=== PATIENT | male | born 1935 | race Caucasian/White ===

== ENCOUNTER 2020-10-16 14:54 | Inpatient (IN) | payer MEDICARE ==
[~2020-10-16] VITALS: Ht 177.8 cm; Wt 49.0 kg
[2020-10-16 15:52] LABS: BASOPHILS % (AUTO) 0.2 % (0.0-5.0); EOSINOPHILS % (AUTO) 0.2 % (0.0-8.0); HEMATOCRIT 38.5 % (42-54); LYMPHOCYTES % (AUTO) 21.9 % (21.0-51.0); MEAN CORPUSCULAR HEMOGLOBIN 31.4 pg (27.0-33.0); MEAN CORPUSCULAR VOLUME 92.3 fL (79-99); MONOCYTES % (AUTO) 8.9 % (3.0-13.0); NEUTROPHILS % (AUTO) 68.2 % (40.0-77.0); PLATELET COUNT (AUTO) 150 K/uL (130-400); RED BLOOD CELL COUNT(AUTO) 4.17 MIL/uL (4.50-6.20); RED CELL DISTRIBUTION WIDTH 12.2 % (11.0-15.5); WHITE BLOOD COUNT (AUTO) 4.9 K/uL (4.8-10.8)
[2020-10-16] MEDS ORDERED: ONDANSETRON HCL 4 MG/2 ML VIAL ONE (15:56)
[2020-10-16] MEDS ORDERED: SODIUM CHLORIDE 0.9% 1000ML 1,000 ML IV ONE (15:57)
[2020-10-16 16:00] LABS: CREATININE 0.8 mg/dL (0.5-1.5); POTASSIUM 4.2 mmol/L (3.5-5.1)
[2020-10-16 16:05] LABS: ALBUMIN 3.3 g/dL (3.5-5.0); BILIRUBIN,TOTAL 0.6 mg/dL (0.2-1.0); TOTAL PROTEIN, SERUM 7.3 g/dL (6.0-8.3)
[2020-10-16 16:08] LABS: APPEARANCE,URINE SL CLOUDY (CLEAR); BILIRUBIN,URINE NEGATIVE (NEGATIVE); COLOR,URINE YELLOW (YELLOW); GLUCOSE, URINE (UA) NEGATIVE (NEGATIVE); KETONES,URINE NEGATIVE (NEGATIVE); LEUKOCYTE ESTERASE ,URINE TRACE (NEGATIVE); NITRATE,URINE POSITIVE (NEGATIVE); OCCULT BLOOD,URINE NEGATIVE (NEGATIVE); PROTEIN,URINE TRACE mg/dL (NEGATIVE)
[2020-10-16 16:17] LABS: RBC,URINE 0-1 /HPF (0-1)
[2020-10-16 16:18] LABS: BACTERIA,URINE Few /HPF (None Seen); SQUAMOUS EPITHELIAL CELL,UR Rare /HPF (0-2); TRANSITIONAL EPI CELLS,URINE Rare /HPF (None Seen)
[2020-10-16 16:19] LABS: AMORPHOUS SEDIMENT,UR Few /LPF (None Seen)
[2020-10-16] MEDS ORDERED: IOHEXOL-350 75 ML VIAL IV ONE (17:07)
[2020-10-16] MEDS ORDERED: ZOSYN 3.375GM+NS 50ML 50 ML IV ONE (18:40)
[2020-10-16] MEDS ORDERED: MORPHINE SULFATE 4 MG/1ML SYG ONE (18:49)
[2020-10-16] MEDS ORDERED: ACETAMINOPHEN 325 MG TAB PO PRN ×2 (19:30)
[2020-10-16] MEDS ORDERED: ONDANSETRON HCL 4 MG/2 ML VIAL IV PRN (19:30)
[2020-10-16] MEDS ORDERED: LACTULOSE 20 GM/30 ML UDCUP PO PRN (19:30)
[2020-10-16] MEDS: SODIUM CHLORIDE 0.9% 1000ML 1,000 ML IV SCH (19:30)
[2020-10-16] MEDS ORDERED: MORPHINE SULFATE 2 MG/ML 1ML SYG IV PRN (19:30)
[2020-10-16] MEDS: CEFTRIAXONE SODIUM 1 GM IV SCH (20:00)
[2020-10-16] MEDS: FAMOTIDINE/PF 20 MG/2 ML VIAL IV SCH (21:00)
[2020-10-16] MEDS ORDERED: BISACODYL 10 MG SUPP.RECT RC ONE ×2 (21:25→21:36)
[2020-10-16] MEDS ORDERED: CEFTRIAXONE SODIUM 1 GM ONE (21:36)
[2020-10-16] MEDS ORDERED: FAMOTIDINE/PF 20 MG/2 ML VIAL IV ONE (21:36)
[2020-10-16] MEDS ORDERED: SODIUM CHLORIDE 0.9% 50 ML IV ONE (21:37)
[2020-10-17] MEDS: SODIUM CHLORIDE 0.9% 1000ML 1,000 ML IV SCH ×2 (05:30→15:30)
[2020-10-17 05:52] LABS: CREATININE 0.8 mg/dL (0.5-1.5); POTASSIUM 3.8 mmol/L (3.5-5.1)
[2020-10-17 05:55] LABS: BASOPHILS % (AUTO) 0.2 % (0.0-5.0); HEMATOCRIT 36.1 % (42-54); LYMPHOCYTES % (AUTO) 22.9 % (21.0-51.0); MEAN CORPUSCULAR HEMOGLOBIN 31.1 pg (27.0-33.0); MEAN CORPUSCULAR HGB CONC 33.5 g/dL (32.0-36.0); MEAN CORPUSCULAR VOLUME 92.8 fL (79-99); MONOCYTES % (AUTO) 8.6 % (3.0-13.0); NEUTROPHILS % (AUTO) 67.9 % (40.0-77.0); PLATELET COUNT (AUTO) 146 K/uL (130-400); RED BLOOD CELL COUNT(AUTO) 3.89 MIL/uL (4.50-6.20); RED CELL DISTRIBUTION WIDTH 12.1 % (11.0-15.5); WHITE BLOOD COUNT (AUTO) 5.3 K/uL (4.8-10.8)
[2020-10-17] MEDS ORDERED: ENOXAPARIN SODIUM 40 MG/0.4 ML SYRINGE SQ ONE (08:12)
[2020-10-17] MEDS ORDERED: FAMOTIDINE/PF 20 MG/2 ML VIAL IV ONE (08:13)
[2020-10-17] MEDS: FAMOTIDINE/PF 20 MG/2 ML VIAL IV SCH ×2 (09:00→20:00)
[2020-10-17] MEDS: ENOXAPARIN SODIUM 40 MG/0.4 ML SYRINGE SQ SCH (09:00)
[2020-10-17] MEDS ORDERED: LACTULOSE 20 GM/30 ML UDCUP ONE (14:14)
[2020-10-17] MEDS ORDERED: BISACODYL 10 MG SUPP.RECT RC ONE (14:15)
[2020-10-17] MEDS ORDERED: LUBIPROSTONE 24 MCG CAP PO SCH (14:45)
[2020-10-17] MEDS: LUBIPROSTONE 24 MCG CAP PO SCH (17:00)
[2020-10-17 19:33] VITALS: BP 129/72
[2020-10-17] MEDS: CEFTRIAXONE SODIUM 1 GM IV SCH (20:00)
[2020-10-17 23:15] VITALS: BP 125/68
[2020-10-18] VITALS (8 sets, daily range): BP systolic 106–167; BP diastolic 57–86
[2020-10-18] MEDS: SODIUM CHLORIDE 0.9% 1000ML 1,000 ML IV SCH ×3 (01:52→21:30)
[2020-10-18] MEDS: LUBIPROSTONE 24 MCG CAP PO SCH ×2 (08:00→16:02)
[2020-10-18] MEDS: ENOXAPARIN SODIUM 40 MG/0.4 ML SYRINGE SQ SCH (09:00)
[2020-10-18] MEDS: FAMOTIDINE/PF 20 MG/2 ML VIAL IV SCH ×2 (09:11→20:28)
[2020-10-18] MEDS: CEFTRIAXONE SODIUM 1 GM IV SCH (20:28)
[2020-10-19] VITALS (7 sets, daily range): BP systolic 110–167; BP diastolic 57–79
[2020-10-19] MEDS ORDERED: PHARMACY COMMUNICATION MISC SCH (03:45)
[2020-10-19 04:26] LABS: BASOPHILS % (AUTO) 0.2 % (0.0-5.0); EOSINOPHILS % (AUTO) 1.6 % (0.0-8.0); HEMATOCRIT 35.5 % (42-54); LYMPHOCYTES % (AUTO) 28.1 % (21.0-51.0); MEAN CORPUSCULAR HEMOGLOBIN 31.1 pg (27.0-33.0); MEAN CORPUSCULAR HGB CONC 34.1 g/dL (32.0-36.0); MEAN CORPUSCULAR VOLUME 91.3 fL (79-99); MONOCYTES % (AUTO) 11.8 % (3.0-13.0); NEUTROPHILS % (AUTO) 57.9 % (40.0-77.0); PLATELET COUNT (AUTO) 169 K/uL (130-400); RED BLOOD CELL COUNT(AUTO) 3.89 MIL/uL (4.50-6.20); RED CELL DISTRIBUTION WIDTH 11.9 % (11.0-15.5); WHITE BLOOD COUNT (AUTO) 4.5 K/uL (4.8-10.8)
[2020-10-19 04:44] LABS: CARBON DIOXIDE 30 mmol/L (21-32); CHLORIDE 108 mmol/L (101-111); CREATININE 0.8 mg/dL (0.5-1.5); GLOMERULAR FILTR. RATE CALC 98 mL/min (>60); GLUCOSE,RANDOM 99 mg/dL (70-105); LACTATE DEHYDROGENASE 249 U/L (81-234); POTASSIUM 3.7 mmol/L (3.5-5.1); SODIUM SERUM 144 mmol/L (136-145); UREA NITROGEN, BLOOD 22 mg/dL (7-18)
[2020-10-19] MEDS: LUBIPROSTONE 24 MCG CAP PO SCH (09:09)
[2020-10-19] MEDS: ENOXAPARIN SODIUM 40 MG/0.4 ML SYRINGE SQ SCH (09:09)
[2020-10-19] MEDS: FAMOTIDINE/PF 20 MG/2 ML VIAL IV SCH (09:09)
[2020-10-19] MEDS: SODIUM CHLORIDE 0.9% 1000ML 1,000 ML IV SCH (09:10)
[2020-10-19] MEDS ORDERED: LACT10SO9 PO (12:28)
== END 2020-10-19 16:00 | disposition home or self-care (01) | DRG 391 ==
LOC: EDH 14:54 → EDHIP 19:21 → 3AH 10-17 16:26 → 2BH 10-18 18:34 → 2CV 10-19 11:26
PROVIDERS: ADMIT Internal Medicine; ATTEND Internal Medicine
DX: K59.00 Constipation, unspecified (principal); U07.1 COVID-19; N39.0 Urinary tract infection, site not specified; K80.20 Calculus of gallbladder without cholecystitis without obstruction; K82.8 Other specified diseases of gallbladder; E78.5 Hyperlipidemia, unspecified; K59.09 Other constipation; R91.8 Other nonspecific abnormal finding of lung field; Z91.09 Other allergy status, other than to drugs and biological substances
CPT/HCPCS: 36415; 71045; 74177; 78227; 80048; 80053; 81001; 82150; 82728; 82948; 83615; 83690; 84145; 85025; 86140; 86900; 86901; 87077; 87088; 87186; 87426; 93005; A9537; G0378; J0696; J1650; J2270; J2405; J2543; J3490; J7030; Q9967

== ENCOUNTER 2025-11-10 10:06 | Emergency (ER) | payer MEDICARE ==
[~2025-11-10] VITALS: Ht 177.8 cm; Wt 118.8 kg
[~2025-11-10 10:06] MED LIST: LACT10SO9 PO
--- NOTE | 2025-11-10 10:12 | ERN ---
ED Note History of Present Illness Stated Complaint: COUGH Chief Complaint: Cough Time Seen by MD: 10:07 Dictation: PATIENT IS A 89-YEAR-OLD MALE WITH A HISTORY OF PULMONARY HYPERTENSION COMING IN TODAY WITH A CONGESTED COUGH AND SHORTNESS A BREATH ON EXERTION FOR THE LAST 7-8 DAYS. HE HAS NO FEVER NO CHILLS STATES THIS THE COUGH IS NONPRODUCTIVE. STATES HE SAW HIS PRIMARY CARE DOCTOR WHO GAVE HIM BENZONATATE, HE SAID IT DID NOT HELP. HAS BEEN TAKING MUCINEX WAS IT HAS NOT HELPED WITH THE COUGH AND CONGESTION. HE DOES NOT HAVE A LOCAL ADULT [employer] FOR HIS PULMONARY HYPERTENSION, HE IS A winter. Allergies: Coded Allergies: pollen extracts (Verified Allergy, Unknown, 10/16/20) Home Meds Active Scripts Lactulose (Lactulose) 20 Gm/30 Ml Solution, 20 GM PO BID PRN for CONSTIPATION for 30 Days, #1800 ML Prov:BEE CALLE Jr., MD 10/19/20 Past Medical History RN Note Reviewed/Agreed w/PFSH: Yes Review of System Dictation CONSTITUTIONAL: NEGATIVE EXCEPT FOR HPI HEAD/FACE: NEGATIVE EXCEPT FOR HPI EENT: NEGATIVE EXCEPT FOR HPI RESPIRATORY: NEGATIVE EXCEPT FOR HPI SOB/COUGH CONGESTION GASTROINTESTINAL/ABDOMINAL: NEGATIVE EXCEPT FOR HPI GENITOURINARY: NEGATIVE EXCEPT FOR HPI MUSCULOSKELETAL: NEGATIVE EXCEPT FOR HPI INTEGUMENTARY: NEGATIVE EXCEPT FOR HPI NEUROLOGICAL/PSYCH: NEGATIVE EXCEPT FOR HPI HEMATOLOGIC/LYMPHATIC: NEGATIVE EXCEPT FOR HPI ALL SYSTEMS NEGATIVE, EXCEPT NOTED ABOVE. 13 POINT REVIEW OF SYSTEMS ASSESSED AND ALL NEGATIVE EXCEPT FOR ABOVE. Initial Vital Sign VS Vital Signs Date Time Temp Pulse Resp B/P (MAP) Pulse Ox O2 Delivery O2 Flow Rate FiO2 11/10/25 10:07 98.8 78 18 140/64 96 Room Air 0 Physical Exam Dictation VITAL SIGNS REVIEWED GENERAL APPEARANCE: ALERT, ORIENTED X 3, MILD CUTE DISTRESS, WELL DEVELOPED, NOURISHED. OBESE HEAD AND FACE: NON-TRAUMATIC. EYES: PERRL, PINK CONJUNCTIVAS, EYELID NO TRAUMA, ANTERIOR CHAMBER WITH ARCUS SENILIS. EARS: PINNAS INTACT AND NO SIGNS OF TRAUMA OR ERYTHEMA EAR CANALS CLEAR AND NO DISCHARGE TM NO ERYTHEMA NOSE: NO DISCHARGE, NO BLEEDING. OROPHARYNX: MOUTH NORMAL, TONGUE PINK, PHARYNX CLEAR,NO ERYTHEMA, TONSILS NO EXUDATES, NO ABSCESSES NOTED, MUCOUS MEMBRANE MOIST NECK: SUPPLE, NON-TENDER, NO THYROMEGALY, NO MASSES, NO JVD, NO BRUITS BREAST:DEFERRED CHEST:NO TENDERNESS, NO CREPITUS, NO PARADOXICAL MOVEMENT, NO RETRACTIONS LUNGS:C BILATERAL BREATH SOUNDS CLEAR VERY DIMINISHED THROUGHOUT. NOTED TO BE SPEAKING IN 3-4 WORD SENTENCES. DRY COUGH NOTED HEART: REGULAR RATE, REGULAR RHYTHM, NO MURMUR, NO GALLOPS VASCULAR: NO PERIPHERAL EDEMA, ABDOMEN: SOFT, POSITIVE BOWEL SOUNDS, NONDISTENDED, NO GUARDING, NONTENDER, NO REBOUND, NO MASSES NO HEPATOMEGALY, NO SPLENOMEGALY, NO TRENT'S SIGN, NO HERNIAS. RECTAL: DEFERRED GENITAL: DEFERRED NEUROLOGICAL: NORMAL SPEECH, MOTOR FUNCTION INTACT, SENSORY FUNCTION INTACT MUSCULOSKELETAL: NECK NONTENDER, FULL RANGE OF MOTION, BACK NONTENDER, FULL RANGE OF MOTION, EXTREMITIES: NONTENDER, FULL RANGE OF MOTION SKIN: COLOR PINK, DRY, NO TURGOR, NO RASH, NO LACERATIONS, NO ABRASIONS, NO CONTUSIONS. LYMPHATIC: DEFERRED Results (Laboratory/Radiology) Laboratory/Radiology Laboratory Tests Test 11/10/25 10:15 11/10/25 10:19 11/10/25 10:25 11/10/25 10:35 SARS-CoV-2 Antigen (Rapid) PRESUMPTIVE NEGATIVE White Blood Count 8.2 K/uL (4.8-10.8) Red Blood Count 3.70 MIL/uL (4.50-6.20) L Hemoglobin 11.7 g/dL (14.0-18.0) L Hematocrit 35.8 % (42-54) L Mean Corpuscular Volume 96.8 fL (79-99) Mean Corpuscular Hemoglobin 31.6 pg (27.0-33.0) Mean Corpuscular Hemoglobin Concent 32.7 g/dL (32.0-36.0) Red Cell Distribution Width 13.1 % (11.0-15.5) Platelet Count 157 K/uL (130-400) Mean Platelet Volume 11.7 fL (7.5-10.5) H Immature Granulocyte % (Auto) 0.2 % (0-1) Neutrophils (%) (Auto) 63.9 % (40.0-77.0) Lymphocytes (%) (Auto) 17.9 % (21.0-51.0) L Monocytes (%) (Auto) 13.5 % (3.0-13.0) H Eosinophils (%) (Auto) 3.9 % (0.0-8.0) Basophils (%) (Auto) 0.6 % (0.0-5.0) Neutrophils # (Auto) 5.2 K/uL (1.8-7.7) Lymphocytes # (Auto) 1.5 K/uL (1.0-4.8) Monocytes # (Auto) 1.1 K/uL (0.1-1.0) H Eosinophils # (Auto) 0.32 K/uL (0.00-0.70) Basophils # (Auto) 0.05 K/uL (0.00-0.20) Absolute Immature Granulocyte (auto 0.02 K/uL (0-1) Nucleated Red Blood Cells 0.0 % (0.0-0.19) Sodium Level 142 mmol/L (136-145) Potassium Level 4.8 mmol/L (3.5-5.1) Chloride Level 104 mmol/L (101-111) Carbon Dioxide Level 33 mmol/L (21-32) H Blood Urea Nitrogen 17 mg/dL (7-18) Creatinine 0.9 mg/dL (0.5-1.3) Glomerular Filtration Rate Calc 83 mL/min (>90) Random Glucose 108 mg/dL (70-105) H Total Calcium 9.5 mg/dL (8.5-10.1) Magnesium Level 2.10 mg/dL (1.80-2.40) Troponin I High Sensitivity 12 ng/L (4-75) B-Type Natriuretic Peptide 574 pg/mL (0-100) H Urine Color YELLOW (YELLOW) Urine Appearance CLEAR (CLEAR) Urine pH 6.5 (5.0-8.0) Urine Specific [place] 1.012 (1.001-1.031) Urine Protein NEGATIVE mg/dL (NEGATIVE) Urine Glucose (UA) NEGATIVE mg/dL (NEGATIVE) Urine Ketones NEGATIVE mg/dL (NEGATIVE) Urine Occult Blood NEGATIVE (NEGATIVE) Urine Nitrate NEGATIVE (NEGATIVE) Urine Bilirubin NEGATIVE mg/dL (NEGATIVE) Urine Urobilinogen 0.2 mg/dL (0.2-1.0) Urine Leukocyte Esterase 250 [place]/uL (NEGATIVE) H Urine RBC 2-5 /HPF (0-1) H Urine WBC 26-50 /HPF (0-1) H Urine Squamous Epithelial Cells RARE /HPF (0-2) Urine Bacteria None /HPF (None Seen) Urine Hyaline Casts 2-5 /LPF (0-1 /LPF) H Lactic Acid Level 1.1 mmol/L (0.8-2.5) REASON: SOB/COUGH ORDERING PHYSICIAN: REBECCA SANDOVAL [employer]SEM[employer] PROCEDURE: CXR1VW - CHEST 1VW STUDY CR Chest, 1 View HISTORY Shortness of breath and cough TECHNIQUE Single frontal radiograph of the chest. COMPARISON None provided. FINDINGS LUNGS Lungs are clear without focal consolidation, mass, or other acute pulmonary abnormality. PLEURAL SPACES No pleural effusion or pneumothorax is identified. MEDIASTINUM Mild cardiomegaly is present. Mediastinal contours are otherwise within normal limits. BONES No acute osseous abnormality. IMPRESSION Mild cardiomegaly. No acute cardiopulmonary abnormality identified. /[facility] Labs Reviewed?: Yes EKG: (+) NSR EKG Comment: 1045/EKG NORMAL SINUS RHYTHM/HEART RATE 73/AXIS NORMAL/NO ECTOPY ED Course ED Course Orders Procedure Category Date Status Time Covid19 (Sars Antigen LAB 11/10/25 Complete Rapid) 10:08 Cbc With Differential LAB 11/10/25 Complete 10:08 Chest 1vw RAD 11/10/25 Resulted 10:08 12 Lead Ekg Tracing- EKG 11/10/25 Logged Technical 10:08 Magnesium LAB 11/10/25 Complete 10:08 Troponin I High LAB 11/10/25 Complete Sensitivity 10:08 Basic Metabolic Panel LAB 11/10/25 Complete 10:08 Methylprednisolone PHA 11/10/25 Complete Succ 125mg (Solu-Medr 10:30 Albuterol 0.083% PHA 11/10/25 Complete 2.5mg/3ml (Proventil 10:30 Budesonide 0.5 Mg/2 PHA 11/10/25 Complete Ml Inh (Pulmicort 0. 10:08 Blood Cult LUISITO 11/10/25 In Process 10:28 Lactic Acid LAB 11/10/25 Complete 10:28 Urinalysis Profile LAB 11/10/25 Complete 10:32 B-Type Natriuretic LAB 11/10/25 Complete Peptide 10:35 Culture Urine LUISITO 11/10/25 In Process 11:14 Furosemide 40mg Vial PHA 11/10/25 Complete (Lasix 40mg Vial) 12:00 Current Medications Medications (Trade) Dose Ordered Sig/Henny Route PRN Reason Start Time Stop Time Status Last Admin Dose Admin Albuterol Sulfate (Proventil 0.083% 2.5mg/3ml) 5 mg ONCE ONCE IH 11/10/25 10:30 11/10/25 10:31 DC 11/10/25 10:53 Budesonide (Pulmicort 0.5 Mg/2ml) 0.5 mg ONCE STAT IH 11/10/25 10:08 11/10/25 10:12 DC 11/10/25 10:53 Furosemide (LASix 40MG VIAL) 40 mg ONCE ONCE IV 11/10/25 12:00 11/10/25 12:01 DC 11/10/25 11:47 Methylprednisolone Sodium Succinate (Solu-medROL 125MG) 125 mg ONCE ONCE IVP 11/10/25 10:30 11/10/25 10:31 DC 11/10/25 11:46 Vital Signs Date Time Temp Pulse Resp B/P (MAP) Pulse Ox O2 Delivery O2 Flow Rate FiO2 11/10/25 10:55 70 18 11/10/25 10:07 98.8 78 18 140/64 96 Room Air 0 1220/PATIENT STATES HE FEELS MARKEDLY IMPROVED AFTER TREATMENT WITH STEROIDS LASIX AND BRONCHODILATORS. THERE WAS NO CHEST PAIN NO BACK PAIN. SATURATING 98-100% ON ROOM AIR NO T[place]YPNEA HEART Score Response (Comments) Value History: Moderate suspicion (+1) 1 Age: > 65yrs (+2) 2 Risk Factors: 1-2 risk factors (+1) 1 Initial Troponin: Normal limit (0) 0 Total 4 Medical Decision Making MDM MDM: DIFFERENTIAL DIAGNOSIS: ACS/AMI/ELECTROLYTE IMBALANCE/DEHYDRATION/FLUID OVERLOAD/CHF EXACERBATION/PNEUMONIA/BRONCHITIS/ASTHMA RATIONALE: TESTS CONSIDERED AND ORDERED SECONDARY TO SHARED DECISION MAKING INCLUDE: EKG/LABS/RADIOLOGY PREVIOUS OUTSIDE RECORDS REVIEWED: OLD ER VISITS. RISK OF COMPLICATION AND/OR MORBIDITY OR MORTALITY OF PATIENT MANAGEMENT: NONE MEDICATIONS-PER MEDICATION RECONCILIATION NEED FOR HOSPITALIZATION: PATIENT DOES NOT MEET CRITERIA FOR HOSPITALIZATION. NONE NEED FOR EMERGENCY MAJOR/MINOR SURGERY: NO THERE ARE NO SOCIAL CONCERNS WITH THIS PATIENT. PRESCRIPTION DRUG MANAGEMENT ALBUTEROL/MEDROL DOSEPAK PRESCRIPTIONS WILL INCLUDE SYMPTOMATIC CARE PATIENT'S PRIOR EXTERNAL MEDICAL RECORDS FROM OTHER ER VISITS WERE REVIEWED BY ME INDICATED. PRIOR TESTING AND RESULTS FROM PREVIOUS VISITS WERE REVIEWED. PRIOR TESTS WERE TAKEN INTO ACCOUNT WITH MEDICAL DECISION MAKING AND RESOURCE UTILIZATION, INDEPENDENT HISTORIAN/HISTORIANS WERE USED TO OBTAIN COMPLETE MEDICAL HISTORY. I INDEPENDENTLY INTERPRETED THE TEST THAT WERE PERFORMED, RESULTS WERE REVIEWED BY ME AND CONSIDERED FINDINGS ON RADIOLOGY IF ORDERED. MEDICAL MANAGEMENT AND EXAMINATION INTERPRETATION DISCUSSIONS WERE HAD BY ME WITH OTHER QUALIFIED HEALTHCARE PROFESSIONALS INDICATED FOR THE PATIENT'S CARE. DX & DISP Disposition: Discharge Departure Impression: Primary Impression: Viral bronchitis Additional Impressions: SOB (shortness of breath) on exertion, Elevated brain natriuretic peptide (BNP) level Condition: Stable Scripts Benzonatate (Tessalon Perles) 100 Mg Cap 200 MG PO TID for cough, #60 CAP 0 Refills Prov: REBECCA SANDOVALP 11/10/25 Albuterol Sulfate (Albuterol Sulfate) 2.5 Mg/0.5 Ml Vial.neb 2.5 MG IH Q6H for wheezing/sob, #20 INH 0 Refills Prov: REBECCA SANDOVAL 11/10/25 Methylprednisolone (Medrol) 4 Mg Tab.ds.pk 1 TAB PO AD for 6 Days, #21 TAB 0 Refills 6 on day 1 then reduce by one tablet daily until gone Prov: REBECCA SANDOVAL [employer]ER 11/10/25 Additional Instructions: FOLLOW-UP WITH PRIMARY CARE PROVIDER IN 1 TO 2 DAYS. TAKE MEDICATIONS DIRECTED HERE IN THE EMERGENCY ROOM. OKAY TO CONTINUE HOME MEDICATIONS UNLESS OTHERWISE DISCUSSED DURING YOUR VISIT IN THE EMERGENCY ROOM TODAY. RETURN TO YOUR NEAREST EMERGENCY ROOM IF SYMPTOMS WORSEN OR IF THERE IS NO IMPROVEMENT. CALL 911 IF YOU NEED IMMEDIATE ASSISTANCE. TAKE TYLENOL OR MOTRIN SETT-[id number]-[id number] NEEDED AND IF NO CONTRAINDICATIONS ARE PRESENT. INCREASE ORAL HYDRATION. A WOUND CULTURE OR URINE CULTURE WAS ORDERED HERE IN THE EMERGENCY ROOM DEPARTMENT PLEASE FOLLOW-UP WITH PRIMARY CARE PROVIDER AND ADVISE THEM TO GET REPEAT PORTS FROM OUR FACILITY. IF YOU HAD ANY [place] WRAP/SPLINTS THAT WERE APPLIED HERE, PLEASE DO NOT REMOVE THEM UNTIL YOU SEE YOUR PRIMARY CARE OR SPECIALTY. TAKE MEDROL DOSEPAK DIRECTED UNTIL GONE. USE ALBUTEROL NEBULIZER EVERY 6 HOURS FOR TWO DAYS. TAKE TESSALON NEEDED FOR COUGH. SEE YOUR PRIMARY CARE DOCTOR FOR FOLLOW UP Referrals: SELF,REFERRAL (PCP) Time of Disposition: 12:21 I have reviewed the case, and I agree with, Diagnosis and Plan REBECCA SANDOVAL [facility] Nov 10, 2025 10:12
--- NOTE | 2025-11-10 10:21 | NUR ---
PT JUST NOW PLACED IN MY ED BED 12. NO ACUTE DISTRESS.
[2025-11-10 10:28] LABS: IMMATURE GRANULOCYTE ABSOLUTE 0.02 K/uL (0-1); NUCLEATED RED BLOOD CELLS 0.0 % (0.0-0.19); PLATELET COUNT (AUTO) 157 K/uL (130-400); RED BLOOD CELL COUNT(AUTO) 3.70 MIL/uL (4.50-6.20); RED CELL DISTRIBUTION WIDTH 13.1 % (11.0-15.5); WHITE BLOOD COUNT (AUTO) 8.2 K/uL (4.8-10.8)
--- NOTE | 2025-11-10 10:50 | HMCIMG ---
STUDY CR Chest, 1 View HISTORY Shortness of breath and cough TECHNIQUE Single frontal radiograph of the chest. COMPARISON None provided. FINDINGS LUNGS Lungs are clear without focal consolidation, mass, or other acute pulmonary abnormality. PLEURAL SPACES No pleural effusion or pneumothorax is identified. MEDIASTINUM Mild cardiomegaly is present. Mediastinal contours are otherwise within normal limits. BONES No acute osseous abnormality. IMPRESSION Mild cardiomegaly. No acute cardiopulmonary abnormality identified. /[place]
[2025-11-10] MEDS: BUDESONIDE 0.5 MG/2 ML INH IH STA (10:53)
[2025-11-10] MEDS: ALBUTEROL 0.083% 2.5 MG/3 ML INH IH ONE (10:53)
[2025-11-10 10:55] VITALS: PULSE 70; RESP 18
[2025-11-10 10:56] LABS: APPEARANCE,URINE CLEAR (CLEAR); GLUCOSE, URINE (UA) NEGATIVE (NEGATIVE); LEUKOCYTE ESTERASE ,URINE 250 Leu/uL (NEGATIVE); NITRATE,URINE NEGATIVE (NEGATIVE); OCCULT BLOOD,URINE NEGATIVE (NEGATIVE)
[2025-11-10 11:01] LABS: CREATININE 0.9 mg/dL (0.5-1.3); GLOMERULAR FILTR. RATE CALC 83.0 mL/min (>90); GLUCOSE,RANDOM 108.0 mg/dL (70-105); SODIUM SERUM 142.0 mmol/L (136-145); UREA NITROGEN, BLOOD 17.0 mg/dL (7-18)
[2025-11-10 11:14] LABS: ADD UA MICROSCOPIC YES
[2025-11-10 11:26] LABS: SQUAMOUS EPITHELIAL CELL,UR RARE /HPF (0-2)
[2025-11-10] MEDS ORDERED: BENZ-39 PO (12:22)
[2025-11-10] MEDS ORDERED: AUD IH (12:22)
[2025-11-10] MEDS ORDERED: METH4TAB3 PO (12:22)
[2025-11-10 12:36] VITALS: BP 122/77; PULSE 100; RESP 16; TEMP 98.4; O2SAT 95
--- NOTE | 2025-11-10 16:08 | EKG ---
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
== END 2025-11-10 12:38 | disposition home or self-care (01) ==
LOC: EDH 10:06
DX: J20.8 Acute bronchitis due to other specified organisms (principal); B97.89 Other viral agents as the cause of diseases classified elsewhere; R79.89 Other specified abnormal findings of blood chemistry; Z20.822 Contact with and (suspected) exposure to COVID-19; Z79.51 Long term (current) use of inhaled steroids; Z79.899 Other long term (current) drug therapy
CPT/HCPCS: 99285; 96374; 71045; 96375; 87426; 83735; 84484; 80048; 83880; 85025; 87040 ×2; 87086 ×2; 87186; 83605; 81001; 36415; 93005; 94640; J2919; J1938